=== PATIENT | female | born 1960 | race African-American/Black ===

== ENCOUNTER 2021-05-17 17:17 | Emergency (ER) | payer MEDICAID ==
[~2021-05-17] VITALS: Ht 160 cm; Wt 100.0 kg
[2021-05-17] MEDS ORDERED: LIDOCAINE HCL/PF 1% 10 MG/ML 5ML VIAL INFIL ONE (19:00)
[2021-05-17] MEDS ORDERED: HYDROCODONE/ACETAMINOPHEN 5/325MG TABLET PO ONE (19:00)
[2021-05-17] MEDS ORDERED: IBUPROFEN 600MG TABLET PO ONE (19:00)
[2021-05-17] MEDS ORDERED: TETANUS, DIPHTHERIA, PERTUSSIS VAC/PF 0.5ML (>7YR OLD) IM ONE (19:00)
[2021-05-17] MEDS ORDERED: BACITRACIN ZINC OINT UDPKT TOP ONE (19:00)
[2021-05-17 19:29] VITALS: BP 163/58
[2021-05-17] MEDS ORDERED: IBUP-2028 MT (21:37)
[2021-05-17] MEDS ORDERED: CEPH500C2 MT (21:38)
== END 2021-05-17 22:18 | disposition home or self-care (01) ==
LOC: ER 17:17
DX: S91.115A Laceration without foreign body of left lesser toe(s) without damage to nail, initial encounter (principal); I10 Essential (primary) hypertension; E11.9 Type 2 diabetes mellitus without complications; W22.8XXA Striking against or struck by other objects, initial encounter; Y93.89 Activity, other specified; Y92.018 Other place in single-family (private) house as the place of occurrence of the external cause
CPT/HCPCS: 12002; 73630; 82962; 90471; 90715; 99284; J3490; J7042